=== PATIENT | female | born 1985 | race Caucasian/White ===

== ENCOUNTER 2016-10-27 17:59 | Emergency (ER) | payer OTHER ==
[~2016-10-27] VITALS: Ht 162.5 cm; Wt 105.2 kg
[~2016-10-27 17:59] MED LIST: 'TENORMIN50 MG PO; AMOXICILLIN500 MG PO; BACTRIM DS 8001 TA1 PO; BIRTH CONTROL1 EAC1 PO; BUSPAR5 MG PO; CELEXA20 MG PO; CIPROFLOXACIN500 MG PO; DIFLUCAN150 MG PO; IBUPROFEN 30 M800 MG; KEFLEX500 MG PO; LYRICA150 MG PO; MOTRIN800 MG PO; Motrin,Rufen800 MG PO; NAPROSYN500 MG PO; NORCO 325 MG-51 TAB PO; PERCOCET 325 MG1 TA2 PO; PERCOCET 325 MG1 TA5 PO; PERCOCET 325 MG1 TA7; PHENERGAN25 M1 PO; PHENERGAN25 M3 PO; PRENATAL1 TA2; SEROQUEL400 MG PO; SUBOXONE 12 MG1 EACH SL; SYNTHROID0.1 MG PO; TRAMADOL HCL50 MG PO; VICODIN 5/500 505 MG PO; VICODIN 500 MG-1 TAB PO; XANAX0.5 MG PO; ZANTAC150 MG PO
[2016-10-27] MEDS ORDERED: VENLAFAXINE HY150 M2 PO (18:25)
[2016-10-27] MEDS ORDERED: LATU60TA PO (18:26)
== END 2016-10-27 20:26 | disposition home or self-care (01) ==
LOC: ED 17:59
DX: G43.909 Migraine, unspecified, not intractable, without status migrainosus (principal); R03.0 Elevated blood-pressure reading, without diagnosis of hypertension; F17.200 Nicotine dependence, unspecified, uncomplicated; Z98.890 Other specified postprocedural states; Z88.8 Allergy status to other drugs, medicaments and biological substances

== ENCOUNTER 2017-01-17 23:38 | Emergency (ER) | payer OTHER ==
[~2017-01-17] VITALS: Ht 162.5 cm; Wt 104.3 kg
[~2017-01-17 23:38] MED LIST changes: +LATU60TA PO; +VENLAFAXINE HY150 M2 PO
[2017-01-18] MEDS ORDERED: Orphenadrine C100 MG PO (02:58)
[2017-01-18] MEDS ORDERED: ANAPROX DS550 MG PO (02:58)
[2017-01-18] MEDS ORDERED: ULTRAM50 MG PO (02:58)
== END 2017-01-18 03:10 | disposition home or self-care (01) ==
LOC: ED 23:38
DX: S16.1XXA Strain of muscle, fascia and tendon at neck level, initial encounter (principal); S39.012A Strain of muscle, fascia and tendon of lower back, initial encounter; S40.011A Contusion of right shoulder, initial encounter; Z98.890 Other specified postprocedural states; Z79.899 Other long term (current) drug therapy; Z88.8 Allergy status to other drugs, medicaments and biological substances; W10.9XXA Fall (on) (from) unspecified stairs and steps, initial encounter; Y93.89 Activity, other specified; Y92.009 Unspecified place in unspecified non-institutional (private) residence as the place of occurrence of the external cause; Y99.9 Unspecified external cause status

== ENCOUNTER 2017-04-22 12:00 | Emergency (ER) | payer OTHER ==
[~2017-04-22] VITALS: Wt 123.4 kg
[~2017-04-22 12:00] MED LIST changes: +ANAPROX DS550 MG PO; +CIPROFLOXACIN500 M4 PO; +ESTRADIOL PO; +HYDROCHLOROTHIA25 M1 PO; +LEVOTHYROXIN0.125 M1 PO; +METOPROLOL SUCC25 M2 PO; +NORET PO; +OMEPRAZOLE D/R20 MG PO; +Orphenadrine C100 MG PO; +Phenergan25 MG PO; +SEPTRA DS 800 M1 TAB PO; +ULTRAM50 MG PO; +VITAMIN D50000 I3 PO
[2017-04-22 12:39] LABS: BASO # 0.1 10*3/uL (0.0-0.1); BASO % 0.5 % (0.0-1.0); EOS # 0.3 10*3/uL (0.0-0.4); HEMATOCRIT 36.8 % (37.0-47.0); LYMPH # 2.2 10*3/uL (1.3-4.4); LYMPH % 23.1 % (27.0-41.0); MEAN CELL VOLUME 83.1 fl (81.0-99.0); MEAN CORPUSCULAR HGB 27.1 pg (27.0-31.0); MEAN CORPUSCULAR HGB CONC 32.6 g/dl (33.0-37.0); MONO # 0.5 10*3/uL (0.1-1.0); MONO % 4.8 % (3.0-9.0); NEUT # 6.4 10*3/uL (2.3-7.9); NEUT % 68.2 % (47.0-73.0); PLATELET COUNT AUTOMATED 345 10*3/uL (130-400); RED BLOOD COUNT 4.43 10*6/uL (4.10-5.10); RED CELL DISTRI WIDTH 14.2 % (0-14.5); WHITE BLOOD COUNT 9.4 10*3/uL (4.8-10.8)
[2017-04-22 12:41] LABS: BILIRUBIN 1+ (NEGATIVE); BLOOD NEGATIVE (NEGATIVE); CLARITY SL CLOUDY (CLEAR); COLOR YELLOW (YELLOW); GLUCOSE NEGATIVE (NEGATIVE); KETONE TRACE (NEGATIVE); LEUKO ESTERASE NEGATIVE (NEGATIVE); NITRITE NEGATIVE (NEGATIVE); PROTEIN TRACE (NEGATIVE); SPECIFIC GRAVITY 1.025 (1.005-1.030)
[2017-04-22 12:48] LABS: BACTERIA 3+; EPITHELIAL CELLS 16-20; URINE REFLEX COMMENT YES (NO)
[2017-04-22 12:54] LABS: ALBUMIN 3.6 gm/dl (3.1-4.5); ALKALINE PHOSPHATASE 79 U/L (45-117); BILIRUBIN, TOTAL 0.2 mg/dl (0.2-1.0); BUN 12 mg/dl (7-24); CARBON DIOXIDE 27 mmol/L (21-32); CHLORIDE 102 mmol/L (98-107); EST GLOM FILT AFRICAN AMERICAN > 60 ml/min; GLUCOSE 105 mg/dL (65-99); MAGNESIUM 1.9 mg/dL (1.5-2.1); POTASSIUM 3.1 mmol/L (3.5-5.1); SGOT/AST 20 IU/L (3-35); SGPT/ALT 23 U/L (12-78); SODIUM 139 mmol/L (136-145)
[2017-04-22] MEDS ORDERED: MIRALAX POWDER17 G1 PO (13:27)
[2017-04-22] MEDS ORDERED: PHENERGAN25 M3 PO (14:18)
== END 2017-04-22 13:41 | disposition home or self-care (01) ==
LOC: ED 12:00
PROVIDERS: Nurse Practitioner Family
DX: K59.00 Constipation, unspecified (principal); R10.9 Unspecified abdominal pain; F17.200 Nicotine dependence, unspecified, uncomplicated; Z90.49 Acquired absence of other specified parts of digestive tract; Z88.8 Allergy status to other drugs, medicaments and biological substances

== ENCOUNTER → 2017-07-04 | Outpatient (CLI) | payer OTHER ==
[~2017-07-04] MED LIST changes: +MIRALAX POWDER17 G1 PO
== END | disposition home or self-care (01) ==
LOC: RAD 15:10
DX: J40 Bronchitis, not specified as acute or chronic (principal); R09.89 Other specified symptoms and signs involving the circulatory and respiratory systems; R07.89 Other chest pain

== ENCOUNTER → 2017-07-29 | Outpatient (CLI) | payer OTHER ==
[2017-07-29 10:34] LABS: CHLORIDE 102 mmol/L (98-107); POTASSIUM 3.6 mmol/L (3.5-5.1); SODIUM 138 mmol/L (136-145)
[2017-07-29 10:42] LABS: VITAMIN D, 25-HYDROXY 31.3 ng/mL (30-100)
[2017-07-29 11:28] LABS: ALBUMIN 3.7 gm/dl (3.1-4.5); ALKALINE PHOSPHATASE 80 U/L (45-117); BILIRUBIN, DIRECT < 0.1 mg/dL (0.0-0.2); BUN 13 mg/dl (7-24); CREATININE 0.94 mg/dL (0.55-1.02); SGOT/AST 42 IU/L (3-35); SGPT/ALT 68 U/L (12-78); TOTAL PROTEIN 8.2 gm/dL (6.4-8.2)
[2017-07-29 11:38] LABS: BETA-HCG, QUANT < 1.0 mIU/mL (1-3)
[2017-07-30 07:05] LABS: DHEA SULFATE 56.6 ug/dL (84.8-378.0); PROLACTIN 004465 40.6 ng/mL (4.8-23.3)
== END | disposition home or self-care (01) ==
LOC: LAB 08:55
PROVIDERS: Internal Medicine
DX: E11.65 Type 2 diabetes mellitus with hyperglycemia (principal); E03.9 Hypothyroidism, unspecified; E34.9 Endocrine disorder, unspecified; N91.2 Amenorrhea, unspecified; E55.9 Vitamin D deficiency, unspecified; R63.5 Abnormal weight gain

== ENCOUNTER → 2017-11-20 | Outpatient (CLI) | payer OTHER ==
[2017-11-20 11:42] LABS: ALBUMIN 3.8 gm/dl (3.1-4.5); ALKALINE PHOSPHATASE 78 U/L (45-117); BILIRUBIN, DIRECT < 0.1 mg/dL (0.0-0.2); BUN 10 mg/dl (7-24); CHLORIDE 103 mmol/L (98-107); CHOLESTEROL 244 mg/dL (<200); CREATININE 0.76 mg/dL (0.55-1.02); HDL CHOLESTEROL 40 mg/dl (40-60); LDL CHOLESTEROL 160 mg/dL (9-159); POTASSIUM 3.6 mmol/L (3.5-5.1); SGOT/AST 37 IU/L (3-35); SGPT/ALT 50 U/L (12-78); SODIUM 140 mmol/L (136-145); TOTAL PROTEIN 7.8 gm/dL (6.4-8.2); TRIGLYCERIDES 219 mg/dl (<150); VLDL CHOLESTEROL 44 mg/dL (6-40)
== END | disposition home or self-care (01) ==
LOC: LAB 10:36
PROVIDERS: Internal Medicine
DX: E11.65 Type 2 diabetes mellitus with hyperglycemia (principal); E55.9 Vitamin D deficiency, unspecified; E03.9 Hypothyroidism, unspecified; N91.2 Amenorrhea, unspecified

== ENCOUNTER → 2018-01-17 | Outpatient (CLI) | payer OTHER | END | disposition home or self-care (01) | LOC: CT 14:00 | DX: L02.212 Cutaneous abscess of back [any part, except buttock and flank] (principal) ==

== ENCOUNTER → 2018-01-20 | Outpatient (CLI) | payer OTHER ==
[2018-01-20 09:40] LABS: BILIRUBIN NEGATIVE (NEGATIVE); BLOOD NEGATIVE (NEGATIVE); CLARITY SL CLOUDY (CLEAR); COLOR YELLOW (YELLOW); GLUCOSE NEGATIVE (NEGATIVE); KETONE NEGATIVE (NEGATIVE); LEUKO ESTERASE NEGATIVE (NEGATIVE); NITRITE NEGATIVE (NEGATIVE); PH 5.5 (5.0-9.0); SPECIFIC GRAVITY >= 1.030 (1.005-1.030); UROBILINOGEN 0.2 E.U./dl (0.2-1.0)
[2018-01-20 09:47] LABS: BACTERIA 1+; EPITHELIAL CELLS 16-20
[2018-01-20 09:48] LABS: CALCIUM OXALATE CRYSTALS 1+
[2018-01-20 10:25] LABS: VITAMIN D, 25-HYDROXY 20.8 ng/mL (30-100)
[2018-01-20 10:44] LABS: BUN 14 mg/dl (7-24); CHLORIDE 104 mmol/L (98-107); CREATININE 0.78 mg/dL (0.55-1.02); FREE T4 0.65 ng/dl (0.76-1.46); POTASSIUM 3.3 mmol/L (3.5-5.1); SODIUM 139 mmol/L (136-145)
[2018-01-21 06:09] LABS: DHEA SULFATE 34.3 ug/dL (84.8-378.0); ESTRADIOL 13.2 pg/mL (.); FOLLICLE STIMULATING HORMONE 6.3 mIU/mL (.); PROGESTERONE 004317 <0.1 ng/mL (.); PROLACTIN 004465 11.1 ng/mL (4.8-23.3)
[2018-01-21 07:06] LABS: RHEUMATOID ARTHRITIS FACTOR <10.0 IU/mL (0.0-13.9)
[2018-01-21 09:10] LABS: LUTEINIZING HORMONE 004283 0.9 mIU/mL (.)
== END | disposition home or self-care (01) ==
LOC: LAB 08:24
PROVIDERS: Internal Medicine
DX: E03.9 Hypothyroidism, unspecified (principal); E34.9 Endocrine disorder, unspecified; E55.9 Vitamin D deficiency, unspecified; R73.02 Impaired glucose tolerance (oral); M25.569 Pain in unspecified knee

== ENCOUNTER → 2018-02-02 | Day surgery (SDC) | payer OTHER ==
[~2018-02-02] VITALS: Ht 162.5 cm; Wt 122.5 kg
[~2018-02-02] MED LIST changes: +CRESTOR10 M1 PO; +CYCLOBENZAPRINE10 MG PO; -LEVOTHYROXIN0.125 M1 PO; +METHYLPHENIDATE36 M3 PO; +NORTRIPTYLINE10 MG PO; +SERTRALINE HYD100 MG PO; +SUBOXONE 8 MG-1 EACH SL; +SYNTHROID25 MCG PO; +VISTARIL50 MG PO; +VITAMIN D5000 UNIT PO; -VITAMIN D50000 I3 PO
--- NOTE | ~2018-02-02 | PROC NOTE ---
[place], [place] PROCEDURE NOTE NAME: LUCAS OSORIO [facility] #: [id number] UNIT #: [id number] ROOM: DOCTOR: ENZO VELASQUEZ MD BIRTHDATE: [birth year] DOS: 02/02/2018 PREOPERATIVE DIAGNOSIS: Back cysts times 2. POSTOPERATIVE DIAGNOSIS: Back cysts times 2. PROCEDURE: Excision of back cysts times 2. SURGEON: Enzo Velasquez MD [employer] DE[employer]MENT: [facility]. ANESTHESIA: MAC with local (9 mL of 1% plain lidocaine). INDICATIONS: This is a 32-year-old lady with a history of symptomatic back cysts times 2 who is here for the above-mentioned procedure. The procedure and its complications were explained to the patient in detail preoperatively. Complications that were discussed included but were not limited to bleeding, infection, hematoma/seroma/abscess formation and prolonged pain. She agreed to proceed. DESCRIPTION OF PROCEDURE: After identifying the patient, the patient was brought to the operating suite and placed in the right lateral position. After IV sedation was administered by the anesthesia team, a timeout procedure was called and the parts were then painted and draped in the usual sterile fashion. The cysts were located one on the upper back and one in the lower back. The upper back cyst was larger and it was decided to tackle that one first. An elliptical incision was marked. Local anesthesia was infiltrated. Incision was made and it was deepened in layers. The cyst was excised in its entirety with the help of sharp dissection and sent for histopathological diagnosis. Hemostasis was achieved. Thereafter, the subcutaneous tissue was approximated with the help of 3-0 Vicryl in an interrupted fashion and the skin edges were approximated with the help of 3-0 silk in interrupted mattress fashion. The lower back cyst was tackled next. Incision was marked and made, it was deepened in layers. The cyst was then excised in its entirety and sent for histopathological diagnosis. Hemostasis was achieved. Thereafter, the skin edges were approximated with the help of 3-0 silk in an interrupted mattress fashion. Dressings were placed on both these incisions and the patient was brought back to the recovery room in stable fashion. There were no complications. Dr. Enzo Velasquez, the attending surgeon, was present throughout the operating case. [place], [place] PROCEDURE NOTE NAME: LUCAS OSORIO UNIT #: [id number] ROOM: DOCTOR: ENZO VELASQUEZ MD BIRTHDATE: [birth year] Enzo Velasquez MD CM:PROCNOTE:PROCEDURE NOTE [id number] ENZO VELASQUEZ MD
[2018-02-02 08:56] VITALS: BP 135/80
[2018-02-02 09:38] VITALS: BP 106/77
[2018-02-02 09:55] VITALS: BP 131/43
[2018-02-02 10:10] VITALS: BP 108/66
== END | disposition home or self-care (01) ==
LOC: SDC 01-30 08:45
DX: L72.0 Epidermal cyst (principal); L92.8 Other granulomatous disorders of the skin and subcutaneous tissue; F31.9 Bipolar disorder, unspecified; Z87.442 Personal history of urinary calculi; F41.9 Anxiety disorder, unspecified; Z98.890 Other specified postprocedural states; F17.210 Nicotine dependence, cigarettes, uncomplicated; Z79.899 Other long term (current) drug therapy; L08.89 Other specified local infections of the skin and subcutaneous tissue

== ENCOUNTER 2018-02-09 18:06 | Emergency (ER) | payer OTHER ==
[~2018-02-09] VITALS: Ht 162.5 cm; Wt 123.4 kg
[2018-02-09 18:40] LABS: BASO # 0.1 10*3/uL (0.0-0.1); BASO % 0.6 % (0.0-1.0); EOS # 0.2 10*3/uL (0.0-0.4); HEMATOCRIT 39.8 % (37.0-47.0); HEMOGLOBIN 12.5 g/dl (12.0-16.0); LYMPH # 2.4 10*3/uL (1.3-4.4); MEAN CELL VOLUME 82.4 fl (81.0-99.0); MEAN CORPUSCULAR HGB 25.9 pg (27.0-31.0); MEAN CORPUSCULAR HGB CONC 31.4 g/dl (33.0-37.0); MEAN PLATELET VOLUME 9.9 fl (9.6-12.3); MONO # 0.5 10*3/uL (0.1-1.0); MONO % 5.6 % (3.0-9.0); NEUT % 61.4 % (47.0-73.0); PLATELET COUNT AUTOMATED 324 10*3/uL (130-400); RED BLOOD COUNT 4.83 10*6/uL (4.10-5.10); RED CELL DISTRI WIDTH 14.5 % (0-14.5); WHITE BLOOD COUNT 8.1 10*3/uL (4.8-10.8)
[2018-02-09 18:57] LABS: ALBUMIN 4.1 gm/dl (3.1-4.5); ALKALINE PHOSPHATASE 101 U/L (45-117); BUN 13 mg/dl (7-24); CHLORIDE 103 mmol/L (98-107); CREATININE 0.72 mg/dL (0.55-1.02); POTASSIUM 4.1 mmol/L (3.5-5.1); SGOT/AST 30 IU/L (3-35); SGPT/ALT 39 U/L (12-78); SODIUM 140 mmol/L (136-145); TOTAL PROTEIN 8.3 gm/dL (6.4-8.2)
[2018-02-09] MEDS ORDERED: ANAPROX DS550 MG PO (19:10)
== END 2018-02-09 19:23 | disposition home or self-care (01) ==
LOC: ED 18:06
PROVIDERS: Physician Assistant
DX: G89.18 Other acute postprocedural pain (principal); F17.200 Nicotine dependence, unspecified, uncomplicated; F11.10 Opioid abuse, uncomplicated; Z98.890 Other specified postprocedural states; Z90.49 Acquired absence of other specified parts of digestive tract; Z79.899 Other long term (current) drug therapy; Z88.8 Allergy status to other drugs, medicaments and biological substances

== ENCOUNTER → 2018-03-15 | Outpatient (CLI) | payer OTHER ==
[2018-03-15 14:01] LABS: ALBUMIN 4.4 gm/dl (3.1-4.5); ALKALINE PHOSPHATASE 97 U/L (45-117); BILIRUBIN, DIRECT < 0.1 mg/dL (0.0-0.2); BUN 17 mg/dl (7-24); CHLORIDE 104 mmol/L (98-107); CHOLESTEROL 214 mg/dL (<200); CREATININE 0.95 mg/dL (0.55-1.02); HDL CHOLESTEROL 37 mg/dl (40-60); LDL CHOLESTEROL 102 mg/dL (9-159); POTASSIUM 3.8 mmol/L (3.5-5.1); SGOT/AST 30 IU/L (3-35); SGPT/ALT 51 U/L (12-78); SODIUM 138 mmol/L (136-145); TOTAL PROTEIN 8.8 gm/dL (6.4-8.2); TRIGLYCERIDES 373 mg/dl (<150); VLDL CHOLESTEROL 75 mg/dL (6-40)
[2018-03-15 14:07] LABS: FREE T4 0.67 ng/dl (0.76-1.46)
== END | disposition home or self-care (01) ==
LOC: LAB 12:23
PROVIDERS: Internal Medicine
DX: E78.5 Hyperlipidemia, unspecified (principal); E03.9 Hypothyroidism, unspecified; E55.9 Vitamin D deficiency, unspecified; R73.02 Impaired glucose tolerance (oral)

== ENCOUNTER → 2018-03-27 | Day surgery (SDC) | payer OTHER ==
[~2018-03-27] VITALS: Ht 162.5 cm; Wt 126.1 kg
[2018-03-27 07:21] VITALS: BP 157/96
[2018-03-27 09:57] VITALS: BP 130/57
[2018-03-27 10:15] VITALS: BP 136/81
[2018-03-27 10:28] VITALS: BP 134/78
[2018-03-27 10:43] VITALS: BP 130/80
[2018-03-27 10:52] VITALS: BP 134/78
== END | disposition home or self-care (01) ==
LOC: SDC 03-22 09:30
DX: T81.31XA Disruption of external operation (surgical) wound, not elsewhere classified, initial encounter (principal); T81.89XA Other complications of procedures, not elsewhere classified, initial encounter; L98.429 Non-pressure chronic ulcer of back with unspecified severity; E07.9 Disorder of thyroid, unspecified; K21.9 Gastro-esophageal reflux disease without esophagitis; F31.9 Bipolar disorder, unspecified; F41.9 Anxiety disorder, unspecified; F17.210 Nicotine dependence, cigarettes, uncomplicated; Z90.49 Acquired absence of other specified parts of digestive tract; Z98.890 Other specified postprocedural states; Z79.899 Other long term (current) drug therapy; Z87.19 Personal history of other diseases of the digestive system; Z83.3 Family history of diabetes mellitus; Z82.49 Family history of ischemic heart disease and other diseases of the circulatory system; Z87.442 Personal history of urinary calculi; Z88.8 Allergy status to other drugs, medicaments and biological substances

== ENCOUNTER → 2018-07-05 | Outpatient (CLI) | payer OTHER ==
[2018-07-05 15:33] LABS: BASO # 0.1 10*3/uL (0.0-0.1); BASO % 0.7 % (0.0-1.0); EOS # 0.2 10*3/uL (0.0-0.4); EOS % 2.8 % (1.0-4.0); HEMATOCRIT 35.9 % (37.0-47.0); HEMOGLOBIN 11.5 g/dl (12.0-16.0); LYMPH # 2.9 10*3/uL (1.3-4.4); LYMPH % 43.2 % (27.0-41.0); MEAN CELL VOLUME 80.3 fl (81.0-99.0); MEAN CORPUSCULAR HGB 25.7 pg (27.0-31.0); MEAN PLATELET VOLUME 10.5 fl (9.6-12.3); MONO # 0.4 10*3/uL (0.1-1.0); MONO % 5.7 % (3.0-9.0); NEUT # 3.2 10*3/uL (2.3-7.9); NEUT % 47.5 % (47.0-73.0); PLATELET COUNT AUTOMATED 329 10*3/uL (130-400); RED BLOOD COUNT 4.47 10*6/uL (4.10-5.10); RED CELL DISTRI WIDTH 14.3 % (0-14.5); WHITE BLOOD COUNT 6.7 10*3/uL (4.8-10.8)
[2018-07-05 16:03] LABS: ALBUMIN 3.7 gm/dl (3.1-4.5); ALKALINE PHOSPHATASE 77 U/L (45-117); BUN 14 mg/dl (7-24); CHLORIDE 107 mmol/L (98-107); CREATININE 0.75 mg/dL (0.55-1.02); POTASSIUM 3.9 mmol/L (3.5-5.1); SGOT/AST 17 IU/L (3-35); SGPT/ALT 32 U/L (12-78); SODIUM 141 mmol/L (136-145); T3 UPTAKE 32 % (31-39); THYROXINE (T4) TOTAL 12.2 ug/dl (4.8-13.9); TOTAL PROTEIN 7.3 gm/dL (6.4-8.2)
[2018-07-06 14:08] LABS: ANTI-DSDNA ANTIBODIES 096339 2 IU/mL (0-9); ANTI-RNP ANTIBODIES <0.2 AI (0.0-0.9); ANTICHROMATIN ANTIBODIES <0.2 AI (0.0-0.9); ANTISCLERODERMA-70 AB <0.2 AI (0.0-0.9); SJOGREN ANTI-SS-A <0.2 AI (0.0-0.9); SJOREN AB, ANTI-SS-B <0.2 AI (0.0-0.9)
[2018-07-07 00:02] LABS: PTT-LA 41.2 sec (0.0-51.9)
[2018-07-07 08:12] LABS: LUPUS DRVVT 48.2 sec (0.0-47.0); LUPUS REFLEX INTERPRETATION Comment: (.)
== END | disposition home or self-care (01) ==
LOC: LAB 14:51
PROVIDERS: Pediatrics
DX: Z00.01 Encounter for general adult medical examination with abnormal findings (principal); R60.9 Edema, unspecified; R61 Generalized hyperhidrosis; E55.9 Vitamin D deficiency, unspecified; E78.5 Hyperlipidemia, unspecified; E03.9 Hypothyroidism, unspecified

== ENCOUNTER 2019-04-27 13:58 | Emergency (ER) | payer OTHER ==
[~2019-04-27] VITALS: Ht 162.5 cm; Wt 103.0 kg
== END 2019-04-27 14:44 | disposition home or self-care (01) ==
LOC: ED 13:58
DX: S01.411A Laceration without foreign body of right cheek and temporomandibular area, initial encounter (principal); R42 Dizziness and giddiness; K21.9 Gastro-esophageal reflux disease without esophagitis; F17.200 Nicotine dependence, unspecified, uncomplicated; E03.9 Hypothyroidism, unspecified; Z88.8 Allergy status to other drugs, medicaments and biological substances; Z79.899 Other long term (current) drug therapy; Z87.442 Personal history of urinary calculi; W29.3XXA Contact with powered garden and outdoor hand tools and machinery, initial encounter; Y93.89 Activity, other specified; Y92.89 Other specified places as the place of occurrence of the external cause; Y99.8 Other external cause status

== ENCOUNTER → 2019-12-14 | Outpatient (CLI) | payer OTHER ==
[2019-12-14 16:28] LABS: THYROID STIM HORMONE (HS) 10.8 uIU/ml (0.358-4.75)
[2019-12-14 16:31] LABS: VITAMIN D, 25-HYDROXY 22.4 ng/mL (30-100)
== END | disposition home or self-care (01) ==
LOC: LAB 15:28
PROVIDERS: Psychiatry & Neurology Clinical Neurophysiology
DX: M79.10 Myalgia, unspecified site (principal)

== ENCOUNTER → 2020-10-16 | Outpatient (CLI) | payer OTHER ==
[~2020-10-16] MED LIST changes: +LIDEX 0.05% CRE15 GM T; +MEDROL DOSEPAK4 MG PO
== END | disposition home or self-care (01) ==
LOC: COVID19 13:27
PROVIDERS: ATTEND Internal Medicine
DX: Z20.822 Contact with and (suspected) exposure to COVID-19 (principal); R53.83 Other fatigue; R52 Pain, unspecified

== ENCOUNTER 2023-10-17 18:28 | Emergency (ER) | payer OTHER ==
[~2023-10-17] VITALS: Ht 162.5 cm; Wt 82.1 kg
[2023-10-17 19:43] LABS: BASO # 0.1 10*3/uL (0.0-0.1); BASO % 0.7 % (0.0-1.0); EOS # 0.1 10*3/uL (0.0-0.4); EOS % 0.5 % (1.0-4.0); HEMATOCRIT 40.2 % (37.0-47.0); LYMPH # 2.1 10*3/uL (1.3-4.4); LYMPH % 18.1 % (27.0-41.0); MEAN CELL VOLUME 83.2 fl (81.0-99.0); MEAN CORPUSCULAR HGB 26.5 pg (27.0-31.0); MEAN CORPUSCULAR HGB CONC 31.8 g/dl (33.0-37.0); MEAN PLATELET VOLUME 9.1 fl (9.6-12.3); MONO # 0.5 10*3/uL (0.1-1.0); MONO % 3.9 % (3.0-9.0); NEUT % 76.5 % (47.0-73.0); PLATELET COUNT AUTOMATED 403 10*3/uL (130-400); RED BLOOD COUNT 4.83 10*6/uL (4.10-5.10); RED CELL DISTRI WIDTH 14.1 % (0-14.5); WHITE BLOOD COUNT 11.8 10*3/uL (4.8-10.8)
[2023-10-17 19:53] LABS: BILIRUBIN Negative (Negative); BLOOD Negative (Negative); CLARITY Clear (Clear); COLOR Yellow (Yellow); GLUCOSE Negative (Negative); KETONE Trace (Negative); LEUKO ESTERASE Negative (Negative); NITRITE Negative (Negative); SPECIFIC GRAVITY >= 1.030 (1.001-1.030); UROBILINOGEN 0.2 E.U./dl (0.0-1.0)
[2023-10-17 20:11] LABS: BACTERIA 1+; MUCOUS 2+
[2023-10-17 20:18] LABS: ALKALINE PHOSPHATASE 61 U/L (46-116); BUN 9 mg/dl (9-23); CHLORIDE 105 mmol/L (98-107); POTASSIUM 3.5 mmol/L (3.4-5.1); SGPT/ALT 9 U/L (5-49); TOTAL PROTEIN 7.4 gm/dL (6.0-8.0)
[2023-10-17] MEDS ORDERED: CEPHALEXIN500 M1 PO (20:31)
== END 2023-10-17 20:38 | disposition home or self-care (01) ==
LOC: ED 18:28
PROVIDERS: Physician Assistant Medical
DX: O23.41 Unspecified infection of urinary tract in pregnancy, first trimester (principal); N39.0 Urinary tract infection, site not specified; O26.891 Other specified pregnancy related conditions, first trimester; R10.84 Generalized abdominal pain; R10.2 Pelvic and perineal pain; Z88.8 Allergy status to other drugs, medicaments and biological substances; Z90.49 Acquired absence of other specified parts of digestive tract; Z98.890 Other specified postprocedural states; Z3A.01 Less than 8 weeks gestation of pregnancy; F17.200 Nicotine dependence, unspecified, uncomplicated

== ENCOUNTER 2024-12-04 02:16 | Emergency (ER) | payer OTHER ==
[~2024-12-04] VITALS: Ht 162.5 cm; Wt 81.6 kg
[~2024-12-04 02:16] MED LIST changes: +CEPHALEXIN500 M1 PO
[2024-12-04] MEDS ORDERED: methylPREDNISolone sod succ 125 MG VIAL IV ONE (02:30)
[2024-12-04] MEDS ORDERED: FAMOTIDINE 50 ML IV ONE (02:30)
[2024-12-04 03:29] LABS: URINE AMPHETAMINES Positive (1000ng/ml); URINE BARBITURATES Negative (200ng/ml); URINE BENZODIAZEPINES Negative (200ng/ml); URINE CANNABINOIDS (THC) Negative (50ng/ml); URINE COCAINE Negative (300ng/ml); URINE METHADONE Negative (300ng/ml); URINE OPIATES Negative (300ng/ml); URINE PHENCYCLIDINE Negative (25ng/ml)
== END 2024-12-04 04:40 | disposition home or self-care (01) ==
LOC: ED 02:16
PROVIDERS: Internal Medicine
DX: T65.91XA Toxic effect of unspecified substance, accidental (unintentional), initial encounter (principal); F19.10 Other psychoactive substance abuse, uncomplicated; Z79.899 Other long term (current) drug therapy; Z72.0 Tobacco use; Z88.8 Allergy status to other drugs, medicaments and biological substances; Z90.49 Acquired absence of other specified parts of digestive tract; Z98.890 Other specified postprocedural states; Y92.009 Unspecified place in unspecified non-institutional (private) residence as the place of occurrence of the external cause